=== PATIENT | female | born 1985 | race Caucasian/White ===

== ENCOUNTER → 2019-04-22 09:40 | Outpatient (CLI) | payer MEDICAID | END | disposition home or self-care (01) | LOC: D.RAD 09:40 | PROVIDERS: ATTEND Surgery | DX: K62.5 Hemorrhage of anus and rectum (principal) ==

== ENCOUNTER 2019-05-13 05:08 | Day surgery (SDC) | payer MEDICAID ==
[~2019-05-13] VITALS: Ht 160 cm; Wt 65.9 kg
[2019-05-13 05:27] LABS: HEMATOCRIT 47.4 % (36.0-48.0); HEMOGLOBIN 17.2 g/dL (12-16); MCH 32.8 pg (26.0-34.0); MCHC 36.3 g/dL (31.0-37.0); MCV 90.5 fL (80.0-100.0); MEAN PLATELET VOLUME 11.5 fL (7.4-10.4); RBC 5.24 10x6/uL (4.00-5.40); RDW 13.2 % (11.5-14.5); WBC 11.9 10x3/uL (4.8-10.8)
[2019-05-13] MEDS ORDERED: ESTRACE1 MG PO (06:21)
[2019-05-13 06:36] VITALS: BP 121/71; Ht 160 cm; Wt 65.9 kg
--- NOTE | 2019-05-13 11:07 | OP ---
PATIENT NAME: ADIS TERRY MEDICAL RECORD: [id number] :85 LOCATION:D[facility] ADMISSION DATE: SURGEON: ОЛЕГ MARTIN MD DATE OF OPERATION: 05/13/2019 REFERRING PHYSICIAN: Dr. Cardoso of [place]. PREOPERATIVE DIAGNOSES: Rectal bleeding and sigmoid colon polyp seen on barium enema and chronic constipation. POSTOPERATIVE DIAGNOSES: Chronic constipation, normal colonoscopy aside from retained fecal material in the sigmoid colon, likely responsible for the appearance of the polyp on previous barium enema. OPERATION PERFORMED: Colonoscopy to cecum. 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 PREOPERATIVE NOTE: Ms. Terry is a 33-year-old white female patient referred by Dr. Cardoso with a history of intermittent rectal bleeding without pain. She has also a history of extremely poor bowel habits with history of having bowel movements at frequency of only once every 2 weeks and a claim that drinking water makes her nauseated and vomit. She had a barium enema couple of weeks ago, which showed what was thought to be a sizable polyp in the sigmoid colon or around the junction of the descending and sigmoid colons at the level of the pelvic brim and she is brought today after a standard colonoscopy prep for outpatient endoscopy. Under TIVA with the patient in the lateral decubitus position, digital rectal exam was performed and was negative. The fiberoptic Olympus colonoscope was introduced and advanced with minimal difficulty to the cecum and slowly withdrawn. There were no abnormalities identified other than the presence of retained stool in the region of the suspected polyp. I could not identify any polyps or mucosal lesions at all. The scope was removed and the patient awakened and taken back to the outpatient department. PLAN: The patient will be discharged to home today with instructions to take MiraLax a tablespoon in fluid of choice p.o. daily and to try to drink more fluids. Hopefully, she can start to drink some water and eat more fiber containing foods and follow up with her primary care physician regarding her chronic constipation. I do not, at this time, plan a followup colonoscopy unless she continues to have symptoms. TRANSINT:[id number] Voice Confirmation ID: [id number] DOCUMENT ID: [id number] OPERATIVE REPORT [id number] ADIS TERRY ОЛЕГ MARTIN MD at 1107 CC: BERNARDO CARDOSO MD [id number] DICTATION DATE: 05/13/1949 AGENCY SALES DIRECTOR: 05/13/19899 [facility] 05/13/19 [facility] [address] [facility] NIETO [place], [facility]
== END 2019-05-13 09:35 | disposition home or self-care (01) ==
LOC: D.OPS 05:08
PROVIDERS: Anesthesiology; ATTEND Surgery
DX: K92.2 Gastrointestinal hemorrhage, unspecified (principal); K59.09 Other constipation; K63.5 Polyp of colon